=== PATIENT | male | born 1965 | race Caucasian/White ===

== ENCOUNTER 2018-10-18 02:35 | Emergency (ER) | payer MEDICARE ==
[2018-10-18] MEDS ORDERED: Bupivacaine 0.5% 10 ML SDV INFILT ONE (02:36)
[2018-10-18] MEDS ORDERED: Acetaminophen/HYDROcodone 325-5 MG Tab PO ONE (02:36)
[2018-10-18] MEDS ORDERED: Diphtheria,Pertussis(Acell),Tetanus Vaccine 0.5 ML SDV IM ONE (02:46)
[2018-10-18] MEDS ORDERED: Cephalexin 500 MG Cap PO ONE (02:50)
--- NOTE | 2018-10-18 02:55 | EDM.PDOC ---
ED HPI GENERAL MEDICAL PROBLEM - General Chief Complaint: Upper Extremity Injury/Pain Stated Complaint: CUT FINGER Time Seen by Provider: 10/18/18 02:40 Source of Information: Reports: Patient History Limitations: Reports: No Limitations - History of Present Illness INITIAL COMMENTS - FREE TEXT/NARRATIVE: Left ring finger became caught in trailer hitch @2.5 hours ago. Complains of pain to this digit. Onset: Sudden Location: Reports: Lower Extremity, Left Severity: Moderate left forth finger Pain Score (Numeric/FACES): 3 - Related Data Allergies Allergy/AdvReac Type Severity Reaction Status Date / Time No Known Allergies Allergy Verified 10/18/18 03:09 Home Meds: Home Meds cephALEXin [Keflex] 500 mg PO TID #21 cap 10/18/18 [Rx] Past Medical History Cardiovascular History: Reports: CAD, High Cholesterol, [place] Respiratory History: Reports: COPD Genitourinary History: Reports: Urinary Incontinence, Other (See Below) Other Genitourinary History: bladder problems after accident Musculoskeletal History: Reports: Arthritis, Back Pain, Chronic, Other (See Below) Other Musculoskeletal History: 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 Neurological History: Reports: CVA, Neuropathy, Diabetic, Vertigo, Other (See Below) Other Neuro History: bowel & bladder problems from back/spinal cord injury. Endocrine/Metabolic History: Reports: Diabetes, Type II, Obesity/BMI 30+ - Infectious Disease History Infectious Disease History: Reports: Chicken Pox - Past Surgical History Cardiovascular Surgical History: Reports: Carotid Stents Musculoskeletal Surgical History: Reports: Shoulder Surgery Social & Family History - Caffeine Use Caffeine Use: Reports: Coffee, Soda Review of Systems - Review of Systems Review Of Systems: ROS reveals no pertinent complaints other than HPI. ED EXAM, GENERAL - Physical Exam Exam: See Below Exam Limited By: No Limitations General Appearance: Alert, WD/WN, No Apparent Distress Ears: Normal External Exam Nose: Normal Inspection Throat/Mouth: No Airway Compromise Head: Atraumatic, Normocephalic Respiratory/Chest: No Respiratory Distress Peripheral Pulses: 2+: Radial (L) Extremities: Other (partial amputation left 4th digit @dip) Neurological: Alert, Normal Cognition ED TRAUMA EXTREMITY PROCEDURES - Laceration/Wound Repair Left Digit - 4th (Ring) Lac/Wound Length In cm: 4 Appearance: Other (partial amputation) Distal NVT: Neuro & Vascular Intact Anesthetic Type: Digital Local Anesthesia - Lidocaine (Xylocaine): Other (0.5% Bupivicaine) Local Anesthetic Volume: 4cc Skin Prep: Providone-Iodine (Betadine) Exploration/Debridement/Repair: Wound Explored, No Foreign Material Found, Multiple Flaps Aligned Closed With: Sutures Suture Size: 4-0 # of Sutures: 9 Suture Type: Nylon Suture Size: 4-0 # of Sutures: 3 (nail bed) Repaired With: Vicryl Tetanus Status Addressed: Yes Complications: No Progress/Comments: Nail removed. Course - Vital Signs Last Recorded V/S: Last Vital Signs Temp 36.7 C 10/18/18 02:35 Pulse 78 10/18/18 02:35 Resp 18 10/18/18 02:35 BP 131/77 10/18/18 02:35 Pulse Ox 99 10/18/18 02:35 - Orders/Labs/Meds Orders: Active Orders 24 hr Category Date Time Status Vaccines to be Administered [RC] PER UNIT ROUTINE Care 10/18/18 02:46 Active Fingers Fifth Digit Lt F4 [CR] Stat Exams 10/18/18 02:45 Stop Req Fingers Fourth Digit Lt F3 [CR] Stat Exams 10/18/18 02:49 Taken Meds: Medications Discontinued Medications Generic Name Dose Route Start Last Admin Trade Name Freq PRN Reason Stop Dose Admin Cephalexin 500 mg 10/18/18 02:50 10/18/18 02:59 Keflex PO 10/18/18 02:51 500 mg ONETIME ONE Administration Diphtheria/Tetanus/Acell Pertussis 0.5 ml 10/18/18 02:46 10/18/18 02:54 Adacel IM 10/18/18 02:47 0.5 ml .ONCE ONE Administration - Radiology Interpretation Free Text/Narrative:: Left 4th digit XR: Comminuted fracture distal phalanx Departure - Departure Time of Disposition: 03:50 Disposition: Home, Self-Care 01 Condition: Good Clinical Impression: Partial traumatic transphalangeal amputation of finger Qualifiers: Encounter type: initial encounter Qualified Code(s): S68.629A - Partial traumatic transphalangeal amputation of unspecified finger, initial encounter - Discharge Information *PRESCRIPTION DRUG MONITORING PROGRAM REVIEWED*: Yes *COPY OF PRESCRIPTION DRUG MONITORING REPORT IN PATIENT NOEMI: Not Applicable Prescriptions: cephALEXin [Keflex] 500 mg PO TID #21 cap Instructions: Traumatic Finger Amputation Referrals: Franko Arango MD [Ordering Only Provider] - 2 Days Forms: ED Department Discharge Additional Instructions: Follow up with [facility] in 2 days. Fill the prescription for Keflex and take as directed. You may also take the Hydrocodone as needed for pain. Return to the ER if symptoms worsen. - My Orders Last 24 Hours: My Active Orders 10/18/18 02:45 Fingers Fifth Digit Lt F4 [CR] Stat 10/18/18 02:46 Vaccines to be Administered [RC] PER UNIT ROUTINE 10/18/18 02:49 Fingers Fourth Digit Lt F3 [CR] Stat - Assessment/Plan Last 24 Hours: My Active Orders 10/18/18 02:45 Fingers Fifth Digit Lt F4 [CR] Stat 10/18/18 02:46 Vaccines to be Administered [RC] PER UNIT ROUTINE 10/18/18 02:49 Fingers Fourth Digit Lt F3 [CR] Stat
[2018-10-18 06:16] VITALS: BP 142/87
== END 2018-10-18 04:02 | disposition home or self-care (01) ==
LOC: FB.ED 02:35
DX: S68.625A Partial traumatic transphalangeal amputation of left ring finger, initial encounter (principal); E11.40 Type 2 diabetes mellitus with diabetic neuropathy, unspecified; Z23 Encounter for immunization; W23.1XXA Caught, crushed, jammed, or pinched between stationary objects, initial encounter
CPT/HCPCS: 11760; 12002; 73140; 90471; 90715; 99283; 99284; A9270; J3490